=== PATIENT | female | born 1955 | race Caucasian/White ===

== ENCOUNTER → 2020-06-28 14:41 | Outpatient (CLI) | payer OTHER, BC, SELFPAY ==
--- NOTE | ~2020-06-28 | MM_ITS ---
EXAMINATION: MM screening mary BI w lynda HISTORY: Screening mammogram TECHNIQUE: Craniocaudal and mediolateral oblique 3-D tomosynthesis images were obtained and synthetic 2-D images were generated. CAD analysis was submitted and interpreted. COMPARISON: 05/08/2018 bilateral digital screening mammogram 04/17/2017, 10/01/2016 diagnostic left digital mammogram examinations 09/17/2016, 02/17/2015 bilateral digital screening mammogram examinations BREAST PARENCHYMAL COMPOSITION: There are scattered areas of fibroglandular density. FINDINGS: There are numerous bilateral benign calcifications. There is no evidence of suspicious mas s, calcification, or architectural distortion to suggest malignancy in either breast. There has been no suspicious interval change. IMPRESSION: 1. No mammographic evidence of malignancy. 2. Recommend routine screening mammography in one year. BI-RADS Category 2: Benign finding(s). Reviewed, dictated and finalized at location A. [employer]W [employer]GE FUSER
== END ==
PROVIDERS: PCP Internal Medicine; Visit Provider Internal Medicine
DX: Z12.31 Encounter for screening mammogram for malignant neoplasm of breast (principal)
CPT/HCPCS: 77063; 77067

== ENCOUNTER 2020-09-04 11:25 | Emergency (ER) | payer OTHER, BC, SELFPAY ==
--- NOTE | ~2020-09-04 | CT_ITS ---
EXAMINATION: CT brain wo con INDICATION: Head injury COMPARISON: 04/21/2012 TECHNIQUE: Standard unenhanced head CT. The dose-length product (DLP) was 681.00 mGy-cm. The mA was a djusted according to patient size. Iterative reconstruction technique was employed. FINDINGS: There is no intracranial hemorrhage, acute infarction, or abnormal mass lesion. The ventric les are normal. There is no abnormal mass effect or midline shift. The cat-white matter differentiat ion is normal. The basal cisterns are patent. The orbits are normal. The paranasal sinuses, mastoids and calvarium are normal. IMPRESSION: 1. No acute intracranial abnormality. Reviewed, dictated and finalized at location A. MAN [employer]IN BATTLE TANK
--- NOTE | ~2020-09-04 | CT_ITS ---
EXAMINATION: CT cervical spine wo con DATE: 09/04/2020 12:34 INDICATION: Neck injury. TECHNIQUE: Computed tomography (CT) of the cervical spine was performed without intravenous contrast. Automated exposure control and iterative reconstruction technique were employed. The dose-length pro duct was 290.38 mGy-cm. COMPARISON: None FINDINGS: There are nodules in the thyroid measuring up to 11 mm, likely not clinically significant. There is 7 degrees levocurvature of cervical spine. Vertebral body heights are normal. There is moder ately decreased disc height at C3-C4 and C4-C5, severely decreased disc height at C5-C6, and mildly d ecreased disc height at C6-C7. The following disc levels are specifically discussed: C2-C3: There is mild bilateral uncovertebral joint osteoarthritis. There is severe bilateral facet smiley int osteoarthritis. There is no neural foraminal stenosis. There is no central canal stenosis. C3-C4: There is mild bilateral uncovertebral joint osteoarthritis. There is severe bilateral facet smiley int osteoarthritis. There is mild bilateral neural foraminal stenosis. There is mild central canal st enosis. C4-C5: There is moderate bilateral uncovertebral joint osteoarthritis. There is moderate right and mi ld left facet joint osteoarthritis. There is mild bilateral neural foraminal stenosis. There is mild central canal stenosis. C5-C6: There is severe bilateral uncovertebral joint osteoarthritis. There is moderate bilateral face t joint osteoarthritis. There is mild bilateral neural foraminal stenosis. There is mild central nisreen l stenosis. C6-C7: There is no uncovertebral joint osteoarthritis. There is mild bilateral facet joint osteoarthr itis. There is no neural foraminal stenosis. There is no central canal stenosis. C7-T1: There is no uncovertebral joint osteoarthritis. There is moderate bilateral facet joint osteoa rthritis. There is no neural foraminal stenosis. There is no central canal stenosis. IMPRESSION: 1. No fracture. 2. Severe cervical spondylosis. Reviewed, dictated and finalized at location A. PHYSICS TEACHER
--- NOTE | ~2020-09-04 | XR_ITS ---
XR wrist RT min 3V 09/04/2020 12:23 Indication: Right wrist pain after fall Procedure: 4 views right wrist Comparison: No prior studies for comparison. Findings: There is mild osteoarthritis of the triscaphe and first carpometacarpal joint. No fracture or traumatic malalignment. No erosive changes. No focal soft tissue abnormality. No radiopaque foreig n bodies. Impression: 1: Mild polyarticular osteoarthritis. Reviewed, dictated and finalized at location B. O POOL SUPERVISOR Impression: 1: Mild polyarticular osteoarthritis.
[2020-09-04 11:32] VITALS: BP 146/97; PULSE 110; RESP 16; TEMP 36.6; O2SAT 100
--- NOTE | 2020-09-04 12:52 | ED.GENADULT ---
HPI - General Adult General Chief complaint: Fall <Jasmin Craft PA-C - Last Filed: 09/04/20 15:00> Stated complaint: fall, hit head <Jamsin Craft PA-C - Last Filed: 09/04/20 15:00> Time Seen by Provider: 09/04/20 11:29 <Jasmin Craft PA-C - Last Filed: 09/04/20 15:00> Source: patient <VJ Johnson Last Filed: 09/04/20 15:00> Mode of arrival: ambulatory <VJ Johnson Last Filed: 09/04/20 15:00> Limitations: no limitations <VJ Johnson Last Filed: 09/04/20 15:00> History of Present Illness HPI narrative: Patient presents with chief complaint of pain to the left side of her head and the right wrist that began after falling prior to arrival and hitting her head on the cement. Patient states that her head bounced up and she hit it multiple times on the cement while attempting to get up. Patient also reports abrasion to the anterior aspect of her right wrist with some mild discomfort. Patient denies loss of consciousness, changes in vision or hearing, nausea, vomiting. Patient reports she has a frontal and left-sided headache. Patient reports a history of migraines. Patient denies any chest pain, shortness of breath, back pain. She denies any other injuries. <Jasmin Craft PA-C - Last Filed: 09/04/20 15:00> Related Data Home medications: Home Medications Medication Instructions Recorded Confirmed fluticasone propionate 50 2 spray NASAL DAILY 08/25/19 05/23/20 mcg/actuation nasal spray,suspension hydrocodone 7.5 mg-acetaminophen 1 tablet PO Q6H PRN 08/25/19 05/23/20 325 mg tablet turmeric root extract 500 mg 500 mg PO BID 08/25/19 05/23/20 capsule omega-3 fatty acids 1,000 mg 2,000 mg PO BID cap 04/18/20 05/23/20 capsule <VJ Johnson Last Filed: 09/04/20 15:00> Allergies/adverse reactions: Allergies Allergy/AdvReac Type Severity Reaction Status Date / Time sertraline Allergy Unknown Other Verified 05/23/20 14:16 <Jasmin Craft PA-C - Last Filed: 09/04/20 15:00> Review of Systems Review of Systems: Narrative: CONSTITUTIONAL: Denies fever, chills, or sweats. EYES: Denies visual changes, redness, or discharge. ENT: Denies rhinorrhea, congestion, sore throat, or otalgia. CARDIOVASCULAR: Denies chest pain, palpitations, or edema. RESPIRATORY: Denies cough or dyspnea. GASTROINTESTINAL: Denies abdominal pain, nausea, vomiting, or diarrhea. GENITOURINARY: Denies dysuria or hematuria. SKIN: Reports abrasion denies rash or itching. MUSCULOSKELETAL: Reports right wrist pain denies back pain, joint pain, or myalgia. NEUROLOGIC: Reports headache denies numbness, dizziness, or weakness. PSYCHIATRIC: Denies anxiety or depression. <Jasmin Craft PA-C - Last Filed: 09/04/20 15:00> [facility], [facility] Past Medical History Medical History: Medical History (Updated 09/04/20 @ 12:58 by Jasmin Craft PA-C) Benign essential hypertension BMI 25.0-25.9,adult BMI 26.0-26.9,adult CKD (chronic kidney disease) CKD (chronic kidney disease), stage III Colon cancer screening Congestion of left ear DM type 2 (diabetes mellitus, type 2) Encounter for routine adult health examination without abnormal findings Encounter for screening mammogram for malignant neoplasm of breast Facial swelling Hyperlipidemia Metabolic acidosis Migraines On medical terminologist drug therapy Sinusitis Vitamin D deficiency <Jasmin Craft PA-C - Last Filed: 09/04/20 15:00> Family History Family History: Family History Father Diabetes mellitus Family history of diabetes mellitus in first degree relative Mother Diabetes mellitus Family history of diabetes mellitus in first degree relative Sibling Diabetes mellitus Family history of diabetes mellitus in first degree relative <Jasmin Craft PA-C - Last Filed: 09/04/20 15:00> Social History Social History: Social History (Reviewe
[2020-09-04 13:30] VITALS: BP 165/86; PULSE 100; RESP 16; O2SAT 99
== END 2020-09-04 13:30 | disposition home or self-care (01) ==
PROVIDERS: Emergency Provider General Practice; PCP Internal Medicine
DX: S09.90XA Unspecified injury of head, initial encounter (principal); S60.811A Abrasion of right wrist, initial encounter; E11.22 Type 2 diabetes mellitus with diabetic chronic kidney disease; I12.9 Hypertensive chronic kidney disease with stage 1 through stage 4 chronic kidney disease, or unspecified chronic kidney disease; N18.30 Chronic kidney disease, stage 3 unspecified; Z79.84 Long term (current) use of oral hypoglycemic drugs; E78.5 Hyperlipidemia, unspecified; E55.9 Vitamin D deficiency, unspecified; W19.XXXA Unspecified fall, initial encounter
CPT/HCPCS: 70450; 72125; 73110; 99284

== ENCOUNTER 2020-10-24 10:30 | Emergency (ER) | payer OTHER, BC, SELFPAY ==
--- NOTE | ~2020-10-24 | CT_ITS ---
EXAMINATION: CT brain wo con DATE: 10/24/2020 11:52 INDICATION: Headache and nausea post fall with head injury TECHNIQUE: Computed tomography (CT) of the head was performed without intravenous contrast. Sagittal and coronal reconstructions were performed. The mA was adjusted according to patient size. Iterative reconstruction technique was employed. The dose-length product was 681.00 mGy-cm. COMPARISON: None FINDINGS: No fracture. No acute intracranial hemorrhage, acute infarction or abnormal extra axial fluid collect ion. Ventricles are normal and symmetric. No mass/mass effect. The orbits, paranasal sinuses and mast oid air cells are normal. IMPRESSION: 1. No fracture or acute intracranial process. Reviewed, dictated and finalized at location A.
[2020-10-24 10:39] VITALS: BP 154/82; PULSE 102; RESP 18; TEMP 36.3; O2SAT 100
--- NOTE | 2020-10-24 11:04 | ED.HEATRA ---
HPI - Head Injury General Chief complaint: Head Injury Stated complaint: HI, -thinner Time Seen by Provider: 10/24/20 10:34 Source: patient Mode of arrival: ambulatory Limitations: no limitations History of Present Illness HPI Narrative: Patient is 65 years old white female presents to the ED with headache and nausea after striking her head on a railing yesterday. No loss of consciousness, no neck pain or falling. Patient was try to look down to her feet, her face mask was in her way, lost her balance and struck her forehead on the railing. Patient denies any fever, chills, vomiting, chest pain, shortness of breath, back pain. Related Data Home Medications Medication Instructions Recorded Confirmed fluticasone propionate 50 2 spray NASAL DAILY 08/25/19 09/27/20 mcg/actuation nasal spray,suspension hydrocodone 7.5 mg-acetaminophen 1 tablet PO Q6H PRN 08/25/19 09/27/20 325 mg tablet turmeric root extract 500 mg 500 mg PO BID 08/25/19 10/24/20 capsule omega-3 fatty acids 1,000 mg 2,000 mg PO BID cap 04/18/20 09/27/20 capsule Allergies Allergy/AdvReac Type Severity Reaction Status Date / Time sertraline AdvReac Unknown Other Verified 10/24/20 10:52 Review of Systems Review of Systems: Narrative: CONSTITUTIONAL: Denies fever, chills, or sweats. EYES: Denies visual changes, redness, or discharge. ENT: Denies rhinorrhea, congestion, sore throat, or otalgia. CARDIOVASCULAR: Denies chest pain, palpitations, or edema. RESPIRATORY: Denies cough or dyspnea. GASTROINTESTINAL: Denies abdominal pain, nausea, vomiting, or diarrhea. GENITOURINARY: Denies dysuria or hematuria. SKIN: Denies rash or itching. MUSCULOSKELETAL: Denies back pain, joint pain, or myalgia. NEUROLOGIC: Denies headache, numbness, or weakness. PSYCHIATRIC: Denies anxiety or depression. [facility] Past Medical History Medical History Benign essential hypertension BMI 25.0-25.9,adult BMI 26.0-26.9,adult BMI 27.0-27.9,adult CKD (chronic kidney disease) CKD (chronic kidney disease), stage III Colon cancer screening Congestion of left ear DM type 2 (diabetes mellitus, type 2) Encounter for routine adult health examination without abnormal findings Encounter for screening mammogram for malignant neoplasm of breast Facial swelling Fall Follow up Hyperlipidemia Metabolic acidosis Migraines On prison drug therapy Sinusitis Vitamin D deficiency Family History Family History Father Diabetes mellitus Family history of diabetes mellitus in first degree relative Mother Diabetes mellitus Family history of diabetes mellitus in first degree relative Sibling Diabetes mellitus Family history of diabetes mellitus in first degree relative Social History Social History Smoking status: Never smoker Alcohol intake: current Gender identity (if verbalized by the patient): Female Exam Narrative: Exam Narrative: General appearance: Well-developed, well-nourished Skin: Normal color Head: Normocephalic, nontraumatic Eyes: Clear conjunctiva ENT: Oropharynx normal, ears normal, nose normal Neck: Supple, nontender Chest and respiratory: Airway patent, no respiratory distress, no accessory muscle use Heart: Regular rate/rhythm Abdomen: Soft, nontender, no organomegaly, quiet bowel sounds Vascular: Normal peripheral pulses, normal capillary refill. 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
== END 2020-10-24 13:15 | disposition home or self-care (01) ==
PROVIDERS: Emergency Provider Emergency Medicine; PCP Internal Medicine
DX: S09.90XA Unspecified injury of head, initial encounter (principal); I12.9 Hypertensive chronic kidney disease with stage 1 through stage 4 chronic kidney disease, or unspecified chronic kidney disease; E11.22 Type 2 diabetes mellitus with diabetic chronic kidney disease; N18.30 Chronic kidney disease, stage 3 unspecified; E78.5 Hyperlipidemia, unspecified; W22.09XA Striking against other stationary object, initial encounter
CPT/HCPCS: 70450; 99284